=== PATIENT | female | born 1965 ===

== ENCOUNTER 2018-02-09 06:55 | Day surgery (SDC) | payer MEDICARE, MEDICAID ==
[2018-02-05 14:03] VITALS: BMI 22.6
[2018-02-09] MEDS ORDERED: Propofol 10 mg/ml Inj (20 ML) ONE (08:56)
[2018-02-09] MEDS ORDERED: Lidocaine 2% Jelly (30 ml) ONE (09:19)
[2018-02-09] MEDS ORDERED: Lidocaine 2% Jelly (30 ml) TOP ONE (09:21)
[2018-02-09] MEDS ORDERED: Sodium Chloride 0.9% 1,000 ML IV SCH (09:30)
[2018-02-09 10:36] VITALS: BP 101/64; PULSE 61; RESP 14; TEMP 97.9; O2SAT 100
== END 2018-02-09 11:40 | disposition home or self-care (01) ==
LOC: ENDO 06:55
PROVIDERS: ATTEND Internal Medicine
DX: Z12.11 Encounter for screening for malignant neoplasm of colon (principal); K64.8 Other hemorrhoids; K62.1 Rectal polyp; K62.82 Dysplasia of anus
CPT/HCPCS: 45380; 84703; 88305; J2704; J7040 ×2